=== PATIENT | female | born 1945 | race Hispanic/Latino ===

== ENCOUNTER 2024-08-06 18:21 | Emergency (ER) | payer MEDICARE ==
[~2024-08-06] VITALS: Ht 154.9 cm; Wt 63.5 kg
[2024-08-06 19:15] VITALS: PULSE 82; RESP 18; TEMP 98.2
[2024-08-06 21:49] VITALS: BP 156/88; PULSE 78; RESP 18; TEMP 98.7; O2SAT 98
== END 2024-08-07 02:10 ==
LOC: ER 18:27
DX: Z43.1 Encounter for attention to gastrostomy (principal); Z86.73 Personal history of transient ischemic attack (TIA), and cerebral infarction without residual deficits
CPT/HCPCS: 99283